=== PATIENT | male | born 1975 | race Caucasian/White ===

== ENCOUNTER 2018-09-17 15:15 | Emergency (ER) | payer BC, OTHER ==
[2018-09-17 15:40] VITALS: BP 129/75
--- NOTE | 2018-09-17 15:58 | UC ---
UC General HPI - History of Current Complaint Chief Complaint: UCGeneralIllness Stated Complaint: URINARY, ORAL CONCERN Time Seen by Provider: 09/17/18 15:49 Pain Intensity: 6 - Allergy/Home Medications Allergies/Adverse Reactions: Allergies Allergy/AdvReac Type Severity Reaction Status Date / Time MS Penicillins [Penicillins] Allergy Rash Verified 09/17/18 15:31 Penicillins Allergy Rash Verified 09/17/18 15:31 Home Medications: Home Medications Acetaminophen TAB* [Tylenol TAB*] 650 mg PO Q4H PRN 09/17/18 [History Confirmed 09/17/18] Ibuprofen TAB* [Advil TAB*] 400 mg PO Q6H PRN 09/17/18 [History Confirmed ] PMH/Surg Hx/FS Hx/Imm Hx - Surgical History Surgical History: Yes Surgery Procedure, Year, and Place: tonsilectomy. wisdom teeth extraction - Social History Alcohol Use: Occasionally Substance Use Type: None Smoking Status (MU): Never Smoked Tobacco Physical Exam Vital Signs: Initial Vital Signs Temp 98.3 F 09/17/18 15:34 Pulse 80 09/17/18 15:34 Resp 16 09/17/18 15:34 BP 129/75 09/17/18 15:34 Pulse Ox 99 09/17/18 15:34 Discharge - Discharge Plan Referrals: María SHEEHAN,Johny Garcia [Primary Care Provider] -
--- NOTE | 2018-09-17 16:44 | UC ---
Complaint Male HPI - HPI Summary HPI Summary: Pt had pink urine about 2 weeks ago. He drank "a gallon" of cranberry juice and the pink color stopped. The past few days, he has had pink urine again with some red flecks in it. No penile discharge. No pain with BM's. Sexually active only with spouse. Pt also states his 7 month old accidentally drooled in his mouth and she had hand, foot and mouth disease. He states he develop some burning to his tongue with some small canker sores. - History of Current Complaint Chief Complaint: UCGeneralIllness Stated Complaint: URINARY, ORAL CONCERN Time Seen by Provider: 09/17/18 15:49 Hx Obtained From: Patient Onset/Duration: Gradual Onset Timing: Intermittent Severity Initially: Mild Severity Currently: Mild Pain Intensity: 6 Pain Scale Used: 0-10 Numeric Location: Other - [place] urine when urinating the past 1-2 days. No other symptoms , no penile drainage, no testicular pain, no penile pain. Aggravating Factor(s): Voiding Alleviating Factor(s): Nothing Associated Signs And Symptoms: Positive: Negative, Hematuria. Negative: Back Pain, Fever, Blood in Stool, Rectal Pain, Nausea, Penile Swelling, Penile Discharge Prior STD Hx: Negative - Risk Factors Testicular Torsion: Negative - Allergies/Home Medications Allergies/Adverse Reactions: Allergies Allergy/AdvReac Type Severity Reaction Status Date / Time MS Penicillins [Penicillins] Allergy Rash Verified 09/17/18 15:31 Penicillins Allergy Rash Verified 09/17/18 15:31 Home Medications: Home Medications Acetaminophen TAB* [Tylenol TAB*] 650 mg PO Q4H PRN 09/17/18 [History Confirmed 09/17/18] Ibuprofen TAB* [Advil TAB*] 400 mg PO Q6H PRN 09/17/18 [History Confirmed ] PMH/Surg Hx/FS Hx/Imm Hx Previously Healthy: Yes - No other health problems - Surgical History Surgical History: Yes Surgery Procedure, Year, and Place: tonsilectomy. wisdom teeth extraction - Social History Occupation: Employed Full-time Lives: With Family - Pt states he has a 7 month old who recently had hand, foot and mouth disease and she accidentally drooled in his mouth. He also has some sores on his tongue he would like checked. Alcohol Use: Occasionally Substance Use Type: None Smoking Status (MU): Never Smoked Tobacco Review of Systems All Other Systems Reviewed And Are Negative: Yes Skin: Positive: Rash - Very small sores on tongue and burning sensation in mouth. Genitourinary: Positive: Hematuria - [place] urine and small reddish flecks in it yesterday Is Patient Immunocompromised?: No Physical Exam Triage Information Reviewed: Yes Appearance: Well-Appearing, No Pain Distress, Well-Nourished Vital Signs: Initial Vital Signs Temp 98.3 F 09/17/18 15:34 Pulse 80 09/17/18 15:34 Resp 16 09/17/18 15:34 BP 129/75 09/17/18 15:34 Pulse Ox 99 09/17/18 15:34 Vital Signs Reviewed: Yes Eye Exam: Normal ENT Exam: Normal ENT: Positive: Normal ENT inspection, Other - Very small aphthous ulcers tip of tongue and a few small ones on both sides of tongue. Posterior pharynx normal. Neck exam: Normal Respiratory Exam: Normal Cardiovascular Exam: Normal Abdominal Exam: Normal Abdomen Description: Positive: Nontender, No Organomegaly, Soft Bowel Sounds: Positive: Present Musculoskeletal Exam: Normal Neurological Exam: Normal Psychological Exam: Normal Skin Exam: Normal - Pt refused a rectal exam Complaint Male Course/Dx - Course Course Of Treatment: Comfortable here. Urine with a trace of leukocytes, no blood. Will treat with Bactrim BS BID for 7 days with a definte follow up with urologist before the medication is completed. RX for Magic Mouthwash to swish and spit QID for pain relief from the aphthous ulcers. - Differential Dx/Diagnosis Differential Diagnosis/HQI/PQRI: Urinary Tract Infection Provider Diagnosis: UTI (urinary tract infection), Aphthous ulcer - Physician Notifications Discussed Patient Care With: Jazlyn Marin Time Discussed With Above Provider: 16:00 Discharge - Sign-Out/Discharge Documenting (check all that apply): Patient Departure All imaging exams completed and their final reports reviewed: No Studies - Discharge Plan Condition: Good Disposition: HOME Prescriptions: Magic Mouth Was-ASHTYN/MAAL/LIDO* 5 ml SWISH SPIT QID #100 ml Sulfamethox/Trimethoprim DS* [Bactrim DS 800/160 TAB*] 1 tab PO BID #14 tab Patient Education Materials: Urinary Tract Infection in Men (DC), Canker Sores (ED) Referrals: María SHEEHAN,Johny Garcia [Primary Care Provider] - Additional Instructions: Increase fluids, go to the ER if you deveolp fever, chills, worsening of symptoms. Definite follow up with Urologist before the medication is completed. - Billing Disposition and Condition Condition: GOOD Disposition: Home - Attestation Statements Provider Attestation: I was available for consult. This patient was seen by the CEL[facility]. The patient was discussed with me, not evaluated. urine reviewed. Agree with plan for culture, abx, urology f/u with strict return precautions Jodi
== END 2018-09-17 16:38 | disposition home or self-care (01) ==
LOC: UCCORT 15:15
DX: N39.0 Urinary tract infection, site not specified (principal); K12.0 Recurrent oral aphthae; Z88.0 Allergy status to penicillin
CPT/HCPCS: 81003; 87086; 99212; G0463